=== PATIENT | female | born 1955 | race Caucasian/White ===

== ENCOUNTER 2019-03-16 14:16 | Outpatient (CLI) | payer MEDICARE, OTHER, SELFPAY ==
--- NOTE | 2019-03-16 14:26 | MM_ITS ---
WS: [id number] SCREENING DIGITAL MAMMOGRAM WITH CAD HISTORY: SCREENING COMPARISON: 01/06/2018, 12/26/2016 and 11/15/2014. Bilateral CC and MLO views submitted. Computer aided detection analyzed. Breast composition: There are scattered areas of fibroglandular density. New irregular mass in the up per-outer quadrant of the LEFT breast measures 6 mm. Margins are irregular. May be an area of superim posed fibroglandular tissue. Additional benign calcifications in each breast. LEFT breast: Spot compression views (CC and MLO). True ML. Ultrasound to follow if abnormality yadira gonzáles. MM/[place] [id number] IMPRESSION: BI-RADS: 0-Incomplete: Need additional imaging evaluation FOLLOW UP: Need Additional Imaging
== END 2019-03-16 14:17 | disposition home or self-care (01) ==
LOC: RADSHAW 14:23
PROVIDERS: Family Provider Nurse Practitioner Family; PCP Nurse Practitioner Family; Visit Provider Nurse Practitioner Family
DX: Z12.31 Encounter for screening mammogram for malignant neoplasm of breast (principal)
CPT/HCPCS: 77067

== ENCOUNTER 2019-04-30 11:48 | Outpatient (CLI) | payer MEDICARE, OTHER, SELFPAY ==
--- NOTE | 2019-04-30 11:51 | US_ITS ---
WS: [id number] ADDITIONAL VIEWS LEFT MAMMOGRAM LEFT BREAST ULTRASOUND HISTORY: LT BREAST MASS COMPARISON: 03/16/2019, 01/06/2018 and 12/26/2016 LEFT MAMMOGRAM: Spot compression views and true ML. Asymmetry persists 2:00 axis of the LEFT breast. Asymmetry measures about 5 mm with slightly irregula r borders. LEFT BREAST ULTRASOUND 2-D and color Doppler imaging submitted. 2:00 axis of the LEFT breast at 5 cm from the nipple is an ovoid cyst measuring 5 x 2 x 3 mm. US/US breast LT limited* [id number] IMPRESSION: BI-RADS: 2-Benign FOLLOW UP: 1 Year Follow-up
== END 2019-04-30 11:49 | disposition home or self-care (01) ==
LOC: RADSHAW 11:50
PROVIDERS: Family Provider Nurse Practitioner Family; PCP Nurse Practitioner Family; Visit Provider Nurse Practitioner Family
DX: N60.02 Solitary cyst of left breast (principal); N63.21 Unspecified lump in the left breast, upper outer quadrant
CPT/HCPCS: 76642; 77065

== ENCOUNTER → 2019-06-14 11:32 | Outpatient (BNVA) | payer MEDICARE, OTHER, SELFPAY | PROVIDERS: Family Provider Nurse Practitioner Family; PCP Nurse Practitioner Family; Visit Provider Nurse Practitioner Family | DX: L98.9 Disorder of the skin and subcutaneous tissue, unspecified (principal); E87.8 Other disorders of electrolyte and fluid balance, not elsewhere classified; R63.4 Abnormal weight loss; E66.01 Morbid (severe) obesity due to excess calories | CPT/HCPCS: 80053; 80061 ==

== ENCOUNTER → 2019-07-21 14:50 | Outpatient (BNVA) | payer MEDICARE, OTHER, SELFPAY | PROVIDERS: Family Provider Nurse Practitioner Family; PCP Nurse Practitioner Family; Visit Provider Nurse Practitioner Family | DX: R30.0 Dysuria (principal) | CPT/HCPCS: 81000 ==

== ENCOUNTER 2019-09-03 08:17 | Outpatient (CLI) | payer MEDICARE, OTHER, SELFPAY ==
--- NOTE | 2019-09-03 08:30 | FL_ITS ---
WS: [id number] UPPER GI WITH AIR TECHNICAL: Double contrast upper GI FLUOROSCOPY TIME: 2.7 minutes CLINICAL INFORMATION: K21.9 Gastro-esophageal reflux disease without esophagitis COMPARISON: None. FINDINGS: Swallowing: Normal. No aspiration or penetration Esophagus: Normal caliber and motility. Normal peristalsis. No evidence of high-grade stricture. Smal l esophageal hiatal hernia. Gastroesophageal reflux: Marked reflux worse in the supine position extending to the hypopharynx. Stomach: Double contrast stomach is unremarkable. Normal gastric rugae. Normal emptying. Duodenum: Proximal duodenum and duodenal bulb are normal Other findings: None. FL/FL upper GI w air* [id number] IMPRESSION: 1. Normal esophageal caliber and motility. No stricture. 2. Small esophageal hiatal hernia with extensive reflux worse in the supine po sition. Reflux is visualized to the upper esophagus and hypopharynx. 3. Normal double contrast stomach and proximal duodenum.
== END 2019-09-03 08:18 | disposition home or self-care (01) ==
LOC: RAD 08:18
PROVIDERS: PCP Nurse Practitioner Family; Visit Provider Surgery
DX: K21.9 Gastro-esophageal reflux disease without esophagitis (principal); K44.9 Diaphragmatic hernia without obstruction or gangrene
CPT/HCPCS: 74246

== ENCOUNTER → 2019-10-26 10:28 | Outpatient (BNVA) | payer MEDICARE, OTHER, SELFPAY | PROVIDERS: PCP Nurse Practitioner Family; Visit Provider Nurse Practitioner Family | DX: E78.1 Pure hyperglyceridemia (principal); Z79.899 Other long term (current) drug therapy | CPT/HCPCS: 80053; 80061 ==

== ENCOUNTER → 2019-11-12 09:50 | Outpatient (BNVA) | payer MEDICARE, OTHER, SELFPAY | PROVIDERS: PCP Nurse Practitioner Family; Visit Provider Surgery | DX: Z20.828 Contact with and (suspected) exposure to other viral communicable diseases (principal) | CPT/HCPCS: 87635 ==

== ENCOUNTER 2019-11-17 08:05 | Day surgery (SDC) | payer MEDICARE, OTHER, SELFPAY ==
[2019-11-15 12:21] VITALS: BMI 38.4
[2019-11-17 08:20] VITALS: BP 128/72; PULSE 57; RESP 18; TEMP 36.8; O2SAT 97
[2019-11-17] MEDS: sodium chloride 0.9% 1,000 ML 30 ML IV (08:40)
--- NOTE | 2019-11-17 09:23 | ANES.PREANE2 ---
Pre-Anesthetic Assessment Pre-Anesthetic Assessment: Height/Weight: Height 1.65 m Weight 104.78 kg Temp Pulse Resp BP Pulse Ox 98.2 F 57 L 18 128/72 97 11/17/19 08:20 11/17/19 08:20 11/17/19 08:20 11/17/19 08:20 11/17/19 08:20 Preop Diagnosis: weight loss consult Proposed Procedure: Operation Date: 11/17/19 09:30 Proposed Procedures p EGD 36615 K21.9(Not Applicable) - Sujit Goss MD Was Beta Denia taken within 24 hours: Yes Last intake: Intake Last Liquid Date 11/16/19 Last Liquid Time 19:00 Last Solid Date 11/16/19 Last Solid Time 19:00 Social: Social History: No alcohol and No tobacco Exam: Pre-Anes Outpt Exam: alert, oriented x 3, clear to auscultation bilaterally and regular rate & rhythm Airway: Cervical ROM: WNL MP: 3 Dentition: False and Partials Pulmonary: Pulmonary: Sleep apnea (cpap) CV/HEM: CV/HEM: HTN GI: GI: GERD Metabolic: Metabolic: Morbid obesity Comments: metaboli syndrome Anesthetic Plan: ASA status: 2 Anesthesia: MAC Risk of > 500 ml blood loss (7ml/kg in children): No Meds/Allergies Current Medications: Current Medications Generic Name Dose Route Start Last Admin Trade Name Freq PRN Reason Stop Dose Admin Sodium Chloride 1,000 mls @ 30 ml s/hr 11/17/19 08:15 11/17/19 08:40 Sodium Chloride 0.9% IV 11/18/19 08:14 30 mls/hr .Q24H NABIL Administration PFSH Anesthesia PFSH: Medical History Enrolled in chronic care management Fibromyalgia HTN (hypertension) Hypertriglyceridemia Morbid obesity with BMI of 40.0-44.9, adult Obstructive sleep apnea on CPAP Osteoarthritis (arthritis due to wear and tear of joints) Osteoarthritis of knees, bilateral Surgical History History of colonoscopy History of foot surgery Hx of hysterectomy Family History Mother Cancer lung cancer Hypertension Diabetes Denies family history of Anesthesia complication Bleeding disorder Social History Smoking and tobacco status: former smoker Alcohol intake: current Alcohol intake frequency: 0-2 Drinks per Day Desire information about alcohol rehabilitation?: No Household members: spouse Marital status: Current occupational status: retired Current gender identity: Female Data Anesthesia Cardiac Studies: No Data to Display
--- NOTE | 2019-11-17 09:50 | W.PM.OPSUD ---
Surgery/Procedure H&P Update DATE OF PROCEDURE: November 17, 2019 DATE H&P PERFORMED: 11/11/19 H&P UPDATE INFORMATION: I have reviewed H&P completed within last 30 days, I have examined patient prior to procedure and No changes to prior documentation PREOP DIAGNOSIS: Chronic acid reflux PRIMARY INDICATION FOR PROCEDURE: The same PLANNED PROCEDURE: Operation Date: 11/17/19 09:30 Proposed Procedures p EGD 13623 K21.9(Not Applicable) - Sujit Goss MD
[2019-11-17 10:12] VITALS: BP 133/91; PULSE 54; RESP 16; TEMP 36.3; O2SAT 98
--- NOTE | 2019-11-17 10:20 | ANE.PACU2 ---
Inpatient post-anesthesia follow up: Airway intact: Yes Vital signs: Temperature 97.4 F Pulse Rate 54 Respiratory Rate 16 Blood Pressure 133/91 Pulse Oximetry 98 Oxygen Delivery Me thod Room Air Oxygen Flow Rate Fraction of Inspir ed Oxygen Hydration adequate: Yes Nausea and vomiting: No Mental status: Baseline
[2019-11-18 06:11] LABS: H. Pylori / CLO Test Negative
== END 2019-11-17 10:47 | disposition home or self-care (01) ==
PROVIDERS: PCP Nurse Practitioner Family; Visit Provider Surgery
PROC: 0DJ08ZZ Inspection of Upper Intestinal Tract, Via Natural or Artificial Opening Endoscopic (ICD-10-PCS; CPT 43235; principal; 2019-11-17 09:30)
DX: K21.9 Gastro-esophageal reflux disease without esophagitis (principal); K29.70 Gastritis, unspecified, without bleeding; M79.7 Fibromyalgia; I10 Essential (primary) hypertension; E78.00 Pure hypercholesterolemia, unspecified; E66.01 Morbid (severe) obesity due to excess calories; Z68.38 Body mass index [BMI] 38.0-38.9, adult; G47.33 Obstructive sleep apnea (adult) (pediatric); M17.0 Bilateral primary osteoarthritis of knee
CPT/HCPCS: 12345; 43239; 87077; J2704; J7030

== ENCOUNTER 2020-02-14 14:40 | Outpatient (CLI) | payer MEDICARE, OTHER, SELFPAY ==
--- NOTE | 2020-02-14 14:49 | MR_ITS ---
WS: [id number] MRI LEFT SHOULDER NONCONTRAST TECHNIQUE: Sagittal T2, coronal T1, T2 and proton density imaging. Axial gradient PDE imaging. CLINICAL INFORMATION: LEFT SHOULDER PAIN COMPARISON: None. FINDINGS: Moderate degenerative arthritis at the AC joint with mild edema. Mild downsloping of the acromion wit h subacromial spurring. Mild chronic thinning with involving the distal supraspinatus. Tiny intrasubs tance tear involving the distal supraspinatus. No full-thickness rotator cuff tears. Normal infraspin atus. Normal teres minor. Small subcoracoid effusion. Chronic appearing tear involving the distal subscapularis insertion. Mild medial subluxation of the b iceps tendon proximally. Otherwise normal biceps tendon in the bicipital groove. Chronic thinning of the intra-articular biceps tendon. Degenerative fraying of the glenoid labrum. Moderate degenerative arthritis glenohumeral joint. Mandie l biceps labral anchor. Subchondral cystic change involving the glenohumeral joint. MR/MR shoulder LT wo con* [id number] IMPRESSION: 1. Moderate degenerative arthritis AC joint with mild downsloping of the acrom ion. Mild edema at the AC joint. 2. Small intrasubstance tear involving the distal supraspinatus with mild tend inopathy. Chronic thinning of the distal supraspinatus. 3. Chronic appearing atrophy with thinning and chronic tear of the distal subs capularis. Slight medial subluxation of the proximal biceps tendon. 4. Otherwise normal biceps tendon in the bicipital groove. 5. Degenerative fraying glenoid labrum. 6. Moderate degenerative arthritis AC joint with subchondral cystic change. 7. Normal biceps labral anchor.
== END 2020-02-14 14:41 | disposition home or self-care (01) ==
LOC: RADWPI 14:44
PROVIDERS: PCP Nurse Practitioner Family; Visit Provider Nurse Practitioner Family
DX: M25.512 Pain in left shoulder (principal); G89.29 Other chronic pain; M19.012 Primary osteoarthritis, left shoulder; M25.412 Effusion, left shoulder; M75.102 Unspecified rotator cuff tear or rupture of left shoulder, not specified as traumatic; M62.512 Muscle wasting and atrophy, not elsewhere classified, left shoulder; S43.432A Superior glenoid labrum lesion of left shoulder, initial encounter; X58.XXXA Exposure to other specified factors, initial encounter
CPT/HCPCS: 73221

== ENCOUNTER 2020-05-05 10:56 | Outpatient (CLI) | payer MEDICARE, OTHER, SELFPAY ==
--- NOTE | 2020-05-05 11:04 | MM_ITS ---
WS: [id number] BILATERAL DIGITAL SCREENING MAMMOGRAPHY WITH CAD CLINICAL INFORMATION: SCREENING HISTORY: Screening mammogram. No current complaints. COMPARISON: April 30, 2019 TECHNIQUE: Bilateral CC and MLO views. FINDINGS: Scattered fibroglandular densities bilaterally. Ovoid 6 mm asymmetric density upper outer right breas t best seen on the MLO view. This is new from previous. Recommend spot compression views and ultrasou nd for further evaluation. Left breast is unremarkable and unchanged. Punctate and lucent centered calcifications. MM/[place] [id number] IMPRESSION: BI-RADS: 0-Incomplete: Need additional imaging evaluation FOLLOW UP: Need Additional Imaging RECOMMEND RIGHT BREAST DIAGNOSTIC MAMMOGRAPHY AND ULTRASOUND FOR FURTHER EVALUA TION.
== END 2020-05-05 10:57 | disposition home or self-care (01) ==
LOC: RADSHAW 11:03
PROVIDERS: PCP Nurse Practitioner Family; Visit Provider Nurse Practitioner Family
DX: Z12.31 Encounter for screening mammogram for malignant neoplasm of breast (principal); N64.89 Other specified disorders of breast
CPT/HCPCS: 77067

== ENCOUNTER 2020-06-02 08:49 | Outpatient (CLI) | payer MEDICARE, OTHER, SELFPAY ==
--- NOTE | 2020-06-02 08:55 | US_ITS ---
WS: [id number] Right breast ultrasound, 06/02/2020 Clinical Data: RT BREAST ASYMMETRY Comparison: Mammogram, right breast spot, 06/02/2020 Findings: At the 9:00 position 3 cm from the nipple there is a cyst which measures 0.33 x 0.40 x 0.50 cm. Howev er this cyst is not in the location noted on the mammogram. In the 11:00 and 10:00 position of the ri ght breast 3 cm from the nipple there is only normal breast tissue. US/US breast RT limited* [id number] Impression: 1. Normal breast tissue in upper-outer quadrant of the right breast. 2. Incidental cyst at the 9:00 position 3 cm from the nipple the right breast. 3. Return to annual screening mammograms. BIRADS: 2-Benign FOLLOW UP: See Report
--- NOTE | 2020-06-02 08:55 | MM_ITS ---
WS: [id number] Right breast diagnostic digital mammogram, 06/02/2020 Clinical Data: R92.8 - Other abnormal and inconclusive findings on diagnostic imaging of breast Comparison: 05/05/2020, 03/16/2019, 01/06/2018, 12/26/2016, 11/15/2014, 08/26/2013, 07/03/2012, 03/06/2011, 02/05/2010, 01/27/2009, 01/16/2008, 07/31/2006. Findings: The additional imaging of the right breast in the compression CC, compression MLO and the ML views re veal no abnormal masses in the upper outer quadrant. The tissue appears to be normal with no cysts or masses. There are no secondary signs of carcinoma. MM/[place] [id number] Impression: 1. Probable asymmetric tissue in the upper outer quadrant of the right breast. 2. Return to annual screening mammograms. BIRADS: 2-Benign FOLLOW UP: 1 Year Follow-up The CAD controlled area checker was used.
== END 2020-06-02 08:50 | disposition home or self-care (01) ==
PROVIDERS: PCP Nurse Practitioner Family; Visit Provider Nurse Practitioner Family
DX: R92.8 Other abnormal and inconclusive findings on diagnostic imaging of breast (principal)
CPT/HCPCS: 76642; 77065

== ENCOUNTER → 2020-09-04 10:33 | Outpatient (BNVA) | payer MEDICARE, OTHER, SELFPAY | PROVIDERS: PCP Nurse Practitioner Family; Visit Provider Nurse Practitioner Family | DX: J06.9 Acute upper respiratory infection, unspecified (principal); Z20.822 Contact with and (suspected) exposure to COVID-19 | CPT/HCPCS: 87635 ==

== ENCOUNTER 2020-09-09 07:18 | Outpatient (CLI) | payer MEDICARE, OTHER, SELFPAY ==
[2020-09-09 07:32] VITALS: BP 136/82; PULSE 67; RESP 16; TEMP 36.6; O2SAT 95
--- NOTE | 2020-09-09 07:51 | A.OFFVIS_ITS ---
Patient Information COVID 19 common symptoms: positive fever(s), chills and cough [facility] COVID test results: Nasal/Oral Coronavirus 2019 PCR Detected H 09/04/20 10:33 09/04/20 outside results available, scanned Criteria/Plan Inclusion/Exclusion Criteria weight >/= 40kg, + direct test </= 10 days ago and symptom onset </= 10 days ago age >/= 65 not requiring hospitalization, not requiring oxygen (if not chronically on oxygen) and no increase oxygen requirement (if chronically on oxygen) Patient education patient/family/caregiver received/reviewed fact sheet, Emergency Use Authorization/unapproved drug status discussed with patient/family/caregiver, alternatives to this treatment discussed with patient/family/caregiver, risks and benefits of medication reviewed with patient/family/caregiver, pat ient/family/caregiver given opportunity for questions, which were answered and patient consents to receiving Monoclonal Antibody Treatment Plan for treatment Meets criteria for Monoclonal Antibody infusion Ordering Monoclonal Antibody infusion for today
[2020-09-09 09:27] VITALS: BP 153/96; PULSE 59; RESP 17; TEMP 36.8; O2SAT 98
[2020-09-09 10:26] VITALS: BP 157/87; PULSE 60; RESP 18; TEMP 37.1; O2SAT 97
== END 2020-09-09 07:19 | disposition home or self-care (01) ==
PROVIDERS: PCP Nurse Practitioner Family; Visit Provider Nurse Practitioner Family
DX: U07.1 COVID-19 (principal)
CPT/HCPCS: 96365

== ENCOUNTER 2020-10-19 14:38 | Outpatient (CLI) | payer MEDICARE, OTHER, SELFPAY ==
--- NOTE | 2020-10-19 15:15 | XR_ITS ---
WS: [id number] CERVICAL SPINE TECHNIQUE: 3 views of the cervical spine CLINICAL INFORMATION: M54.2 - Cervicalgia COMPARISON: None. FINDINGS: Straightening of the normal cervical lordosis. Moderate spondylitic changes. Disc space narrowing wor se at C5-C6 and C6-C7. Anterior hypertrophic changes. Normal prevertebral soft tissues. Normal C1-C2 articulation. Moderate facet arthropathy in the mid and lower cervical spine. XR/XR cervical spine 3V* [id number] IMPRESSION: 1. Straightening of the normal cervical lordosis with moderate spondylitic yoandy nges. 2. Disc space narrowing worse at C4-C6.
--- NOTE | 2020-10-19 15:45 | CT_ITS ---
WS: [id number] CT HEAD TECHNIQUE: Noncontrast CT of the head obtained from the skullbase to the vertex. CLINICAL INFORMATION: G43.709 - Chronic migraine without aura, not intractable,... COMPARISON: None. DLP: 925.[address] scans at [facility] use at least one of these dose optimization techniques: automated e xposure control; mA and/or kV adjustment per patient size (includes targeted exams where dose is matc hed to clinical indication); or iterative reconstruction. FINDINGS: No evidence of intracranial hemorrhage or mass effect. Ventricular system and basal cisterns are garland nt. Moderate small vessel changes with mild parenchymal volume loss. Chronic lacunar infarcts in the basal ganglia. Benign basal ganglia calcifications. Intracranial vascular calcification. No extra-axi al fluid collections. No evidence of mass or mass effect. Normal kohli-white differentiation. Paranasal sinuses and mastoid air cells are well aerated. .Normal visualized soft tissues. CT/CT head wo con* [id number] IMPRESSION: 1. No evidence of intracranial hemorrhage or mass effect. 2. Moderate small vessel changes. Mild parenchymal volume loss. 3. Chronic lacunar infarcts in the basal ganglia bilaterally. 4. No acute intracranial findings.
== END 2020-10-19 14:39 | disposition home or self-care (01) ==
PROVIDERS: PCP Nurse Practitioner Family; Visit Provider Nurse Practitioner Family
DX: G43.709 Chronic migraine without aura, not intractable, without status migrainosus (principal); M54.2 Cervicalgia; I63.81 Other cerebral infarction due to occlusion or stenosis of small artery
CPT/HCPCS: 70450; 72040

== ENCOUNTER → 2021-01-24 11:18 | Outpatient (BNVA) | payer MEDICARE, OTHER, SELFPAY | PROVIDERS: PCP Nurse Practitioner Family; Visit Provider Specialist | DX: G43.711 Chronic migraine without aura, intractable, with status migrainosus; G31.84 Mild cognitive impairment of uncertain or unknown etiology; G92.9 Unspecified toxic encephalopathy; F32.A Depression, unspecified; Z87.891 Personal history of nicotine dependence | CPT/HCPCS: 96116; 99205 ==

== ENCOUNTER 2021-04-18 10:47 | Outpatient (CLI) | payer MEDICARE, OTHER, SELFPAY ==
--- NOTE | 2021-04-18 11:02 | MR_ITS ---
WS: [id number] MRI BRAIN WITHOUT CONTRAST HISTORY: G43.709 - Chronic migraine without aura, not intractable,... COMPARISON: CT head 10/19/2020 TECHNIQUE: Diffusion imaging, multiplanar T1, T2 and FLAIR imaging obtained. No evidence for acute infarct or hemorrhage. Orozco-white matter differentiation is normal. Benign bila teral basal ganglia calcifications. Moderate amount of T2 and FLAIR signal hyperintensities throughou t the white matter beginning at the vertex and extending around the lateral ventricles. Slightly more confluent on the LEFT. There are both patchy and focal areas of increased T2 and FLAIR signal. Cereb ellum and visualized brainstem is negative. No remote or acute infarcts are volume loss. Ventricles and extra-axial spaces are normal. No inferior displacement of cerebellar tonsils. The sella turcica and pituitary gland are unremarkabl e. Dural venous sinuses and [place] demonstrate no abnormality on this unenhanced studies. Paranasal sinuses: Clear. Mastoid air cells: Normal. Calvarium and scalp: Intact. MR/MR head wo con* [id number] IMPRESSION: 1. No acute infarct. 2. Moderate bilateral T2 and FLAIR signal hyperintensities. Slightly more than expected for this age. Probably related to small vessel ischemic disease. Goldy tional differentials to consider are diabetes, hypertension, smoking and migrai phong. 3. No prior large territory infarct.
--- NOTE | 2021-04-18 11:02 | MR_ITS ---
WS: [id number] MRA ANGIOGRAPHY [place] HISTORY: G43.709 - Chronic migraine without aura, not intractable,... COMPARISON: None available. TECHNIQUE: 3-D MR angiography is performed of the [place]. All images are reviewed including source images. Distal vertebral and basilar arteries are intact with no significant stenosis or plaque. Posterior ce rebral arteries are normal course and caliber. Small caliber posterior communicating arteries are poo rly visualized. Intracranial portion of the internal carotid arteries are normal course and caliber. No significant a therosclerosis, stenosis or aneurysm identified. Middle and anterior cerebral arteries are both paten t with no significant disease. Anterior communicating artery is also normal. MR/MR angio head wo con [id number] IMPRESSION: No significant stenosis, atherosclerotic disease or occlusion within the [place].
--- NOTE | 2021-04-18 11:02 | MR_ITS ---
WS: [id number] MRI CERVICAL SPINE NONCONTRAST HISTORY: Migraines and memory problems. Cervical degeneration. COMPARISON: None available. Technique: Multiplanar, multisequence noncontrast imaging of the cervical spine. Study is compromised by motion. Mild straightening of the normal cervical lordosis with slight retrolisthesis of C5. Signal within the cervical cord is normal. Visualized posterior fossa is unremarkable. Marked degener ation of the disks throughout the cervical spine but most significant at C4-5, C5-6 and C6-7. Large e ndplate osteophytes and disc protrusions. Craniocervical junction, C1 and C2 relationship, odontoid process and soft tissues are normal. C2-C3: Normal. C3-C4: Mild osteophytic ridging. No high-grade stenosis. Mild facet arthritis. C4-C5: Moderate osteophytic ridging and annular disc bulging. Disc and osteophyte disease encroach up on the ventral thecal sac causing at least moderate central and bilateral foraminal stenosis. Mild fa cet arthritis. C5-C6: Mild osteophytic ridging and disc protrusions. There is a small RIGHT paracentral disc protrus ion. Additional osteophytes contributing to moderate central and bilateral foraminal stenosis. C6-C7: Mild annular disc bulging with osteophytic ridging. Disc and osteophyte encroaching upon the t hecal sac and foramen causing mild central and foraminal stenosis. C7-T1: Normal. Paraspinal soft tissue are normal. MR/MR cervical spin wo con* [id number] IMPRESSION: 1. Moderate to severe degenerative disc disease throughout the cervical spine with osteophytosis. Most significant from C4-5 to C6-7. 2. Moderate central and bilateral foraminal stenosis at C4-5 and C5-6 due to c ombination of disc and osteophyte disease. Most significant stenosis and cord c ontact at C4-5. 3. Mild central and foraminal stenosis at C6-7 due to disc and osteophyte dise ase.
== END 2021-04-18 10:48 | disposition home or self-care (01) ==
LOC: RAD 10:56
PROVIDERS: PCP Nurse Practitioner Family; Visit Provider Specialist
DX: G43.709 Chronic migraine without aura, not intractable, without status migrainosus (principal); M48.02 Spinal stenosis, cervical region; M25.78 Osteophyte, vertebrae
CPT/HCPCS: 70544; 70551; 72141

== ENCOUNTER → 2021-04-25 10:23 | Outpatient (BNVA) | payer MEDICARE, OTHER, SELFPAY | PROVIDERS: PCP Nurse Practitioner Family; Visit Provider Specialist | DX: G43.709 Chronic migraine without aura, not intractable, without status migrainosus (principal); G37.9 Demyelinating disease of central nervous system, unspecified; G92.9 Unspecified toxic encephalopathy; G31.84 Mild cognitive impairment of uncertain or unknown etiology; Z87.891 Personal history of nicotine dependence | CPT/HCPCS: 99214; 99215 ==

== ENCOUNTER → 2021-08-08 11:27 | Outpatient (BNVA) | payer MEDICARE, OTHER, SELFPAY | PROVIDERS: PCP Nurse Practitioner Family; Visit Provider Specialist | DX: G43.711 Chronic migraine without aura, intractable, with status migrainosus (principal); G37.9 Demyelinating disease of central nervous system, unspecified; G31.84 Mild cognitive impairment of uncertain or unknown etiology | CPT/HCPCS: 99214 ==

== ENCOUNTER → 2021-09-20 09:57 | Outpatient (BNVA) | payer MEDICARE, OTHER, SELFPAY | PROVIDERS: PCP Nurse Practitioner Family; Visit Provider Nurse Practitioner Family | DX: E66.9 Obesity, unspecified (principal); I10 Essential (primary) hypertension | CPT/HCPCS: 80053; 80061 ==

== ENCOUNTER → 2021-11-07 09:48 | Outpatient (BNVA) | payer MEDICARE, OTHER, SELFPAY | PROVIDERS: PCP Nurse Practitioner Family; Visit Provider Specialist | DX: G31.84 Mild cognitive impairment of uncertain or unknown etiology (principal); G43.711 Chronic migraine without aura, intractable, with status migrainosus; G37.9 Demyelinating disease of central nervous system, unspecified | CPT/HCPCS: 96116; 99213; 99214 ==

== ENCOUNTER → 2021-12-19 09:54 | Outpatient (BNVA) | payer MEDICARE, OTHER, SELFPAY | PROVIDERS: PCP Nurse Practitioner Family; Referring Provider Specialist; Visit Provider Specialist | DX: G56.03 Carpal tunnel syndrome, bilateral upper limbs (principal) | CPT/HCPCS: 95910; 95912 ==

== ENCOUNTER → 2022-01-16 09:30 | Outpatient (BNVA) | payer MEDICARE, OTHER, SELFPAY | PROVIDERS: PCP Nurse Practitioner Family; Referring Provider Specialist; Visit Provider Specialist | DX: G56.03 Carpal tunnel syndrome, bilateral upper limbs (principal) | CPT/HCPCS: 73110 ==

== ENCOUNTER 2022-01-16 11:34 | Outpatient (CLI) | payer MEDICARE, OTHER, SELFPAY | END 2022-01-16 11:35 | disposition home or self-care (01) | LOC: SPT 11:34 | PROVIDERS: PCP Nurse Practitioner Family; Visit Provider Specialist | DX: Z46.89 Encounter for fitting and adjustment of other specified devices (principal); G56.03 Carpal tunnel syndrome, bilateral upper limbs | CPT/HCPCS: 97760; 99204; 99205; L3908 ==

== ENCOUNTER → 2022-03-14 13:26 | Outpatient (BNVA) | payer MEDICARE, OTHER, SELFPAY | PROVIDERS: PCP Nurse Practitioner Family; Visit Provider Nurse Practitioner Family | DX: Z79.899 Other long term (current) drug therapy (principal); M19.012 Primary osteoarthritis, left shoulder | CPT/HCPCS: 80053 ==

== ENCOUNTER → 2022-03-21 11:28 | Outpatient (BNVA) | payer MEDICARE, OTHER, SELFPAY | PROVIDERS: PCP Nurse Practitioner Family; Visit Provider Nurse Practitioner Family | DX: Z79.899 Other long term (current) drug therapy (principal); L98.9 Disorder of the skin and subcutaneous tissue, unspecified; R73.09 Other abnormal glucose; R94.4 Abnormal results of kidney function studies | CPT/HCPCS: 83036 ==

== ENCOUNTER → 2022-05-07 11:13 | Outpatient (BNVA) | payer MEDICARE, OTHER, SELFPAY | PROVIDERS: PCP Nurse Practitioner Family; Visit Provider Nurse Practitioner Family | DX: M19.90 Unspecified osteoarthritis, unspecified site (principal); I10 Essential (primary) hypertension | CPT/HCPCS: 80053 ==

== ENCOUNTER → 2022-05-14 11:10 | Outpatient (BNVA) | payer MEDICARE, OTHER, SELFPAY | PROVIDERS: PCP Nurse Practitioner Family; Visit Provider Specialist | DX: G31.84 Mild cognitive impairment of uncertain or unknown etiology (principal); G43.711 Chronic migraine without aura, intractable, with status migrainosus; G56.03 Carpal tunnel syndrome, bilateral upper limbs; G37.9 Demyelinating disease of central nervous system, unspecified; I10 Essential (primary) hypertension; M19.90 Unspecified osteoarthritis, unspecified site; E66.01 Morbid (severe) obesity due to excess calories; Z68.41 Body mass index [BMI] 40.0-44.9, adult; R94.4 Abnormal results of kidney function studies | CPT/HCPCS: 99214 ==

== ENCOUNTER → 2022-06-05 10:57 | Outpatient (BNVA) | payer MEDICARE, OTHER, SELFPAY | PROVIDERS: PCP Nurse Practitioner Family; Visit Provider Internal Medicine Nephrology | DX: N18.30 Chronic kidney disease, stage 3 unspecified (principal); I10 Essential (primary) hypertension; Z79.899 Other long term (current) drug therapy | CPT/HCPCS: 80069; 82310; 82570; 83970; 84156; 85025 ==

== ENCOUNTER → 2022-07-29 11:34 | Outpatient (BNVA) | payer MEDICARE, OTHER, SELFPAY | PROVIDERS: PCP Nurse Practitioner Family; Visit Provider Nurse Practitioner Family | DX: G37.9 Demyelinating disease of central nervous system, unspecified (principal); M17.0 Bilateral primary osteoarthritis of knee; R29.898 Other symptoms and signs involving the musculoskeletal system; E11.9 Type 2 diabetes mellitus without complications; E66.01 Morbid (severe) obesity due to excess calories; Z68.41 Body mass index [BMI] 40.0-44.9, adult | CPT/HCPCS: 83036 ==

== ENCOUNTER → 2022-09-03 14:07 | Outpatient (BNVA) | payer MEDICARE, OTHER, SELFPAY | PROVIDERS: PCP Nurse Practitioner Family; Visit Provider Nurse Practitioner Family | DX: L57.0 Actinic keratosis (principal); C44.712 Basal cell carcinoma of skin of right lower limb, including hip; L57.8 Other skin changes due to chronic exposure to nonionizing radiation; L81.4 Other melanin hyperpigmentation; D22.5 Melanocytic nevi of trunk; L82.1 Other seborrheic keratosis; L91.8 Other hypertrophic disorders of the skin; Z85.828 Personal history of other malignant neoplasm of skin | CPT/HCPCS: 11102; 17000; 17003; 99213 ==

== ENCOUNTER → 2022-10-07 08:50 | Outpatient (BNVA) | payer MEDICARE, OTHER, SELFPAY | PROVIDERS: PCP Nurse Practitioner Family; Visit Provider Dermatology | DX: C44.712 Basal cell carcinoma of skin of right lower limb, including hip (principal) | CPT/HCPCS: 13121; 17313 ==

== ENCOUNTER → 2022-11-13 13:20 | Outpatient (BNVA) | payer MEDICARE, OTHER, SELFPAY | PROVIDERS: PCP Nurse Practitioner Family; Visit Provider Nurse Practitioner Family | DX: E78.1 Pure hyperglyceridemia (principal); I10 Essential (primary) hypertension; M19.90 Unspecified osteoarthritis, unspecified site | CPT/HCPCS: 80053; 80061 ==

== ENCOUNTER 2023-02-14 10:03 | Outpatient (CLI) | payer MEDICARE, OTHER, SELFPAY ==
--- NOTE | 2023-02-14 10:30 | CTR_ITS ---
PROCEDURE INFORMATION: Exam: CT Abdomen And Pelvis With Contrast Exam date and time: 02/14/2023 11:15 AM Age: 67 years old Clinical indication: Abdominal pain; Localized; Lower; Prior surgery; Surgery date: 6+ months; Surgery type: Hyster; Additional info: R10.9 - unspecified abdominal pain TECHNIQUE: Imaging protocol: Computed tomography of the abdomen and pelvis with contrast. Radiation optimization: All CT scans at this facility use at least one of these dose optimization techniques: automated exposure control; mA and/or kV adjustment per patient size (includes targeted exams where dose is matched to clinical indication); or iterative reconstruction. Contrast material: OMNI 350; Contrast volume: 95 ml; Contrast route: INTRAVENOUS (IV); REPORTING DATA: Count of CT and Cardiac NM exams in prior 12 months: This patient has received 0 known CTs and 0 known cardiac nuclear medicine studies in the 12 months prior to the current study. COMPARISON: XA FL upper GI w air* [id number] 09/03/2019 8:44 AM RADIATION DOSE METRICS: Total DLP (mGy-cm): 845.56 FINDINGS: Lungs: Lung bases are clear. Liver: The liver is normal. Gallbladder and bile ducts: The gallbladder is nondistended. There is sludge in the lumen. There is subtle gallbladder mucosal hyperemia without pericholecystic edema. There is no intrahepatic or extrahepatic bile duct dilation. Acute cholecystitis is not suspected. Pancreas: The pancreas is unremarkable. Spleen: The spleen is unremarkable. Adrenal glands: There is hypertrophy of the left adrenal gland. The right adrenal gland is normal. Kidneys and ureters: There is mild atrophy of both kidneys. Kidneys are slightly under rotated bilaterally. Renal parenchymal enhancement pattern is normal. There is no hydronephrosis or stones. Stomach and bowel: The stomach is unremarkable. The small bowel is nondilated. There is moderate sigmoid colonic diverticulosis without evidence of diverticulitis. Appendix: The appendix is normal. Intraperitoneal space: There is no free air or significant intraperitoneal free fluid. Vasculature: There is moderate aortic atherosclerotic disease. The portal, splenic and superior mesenteric veins are patent. Lymph nodes: There is no lymphadenopathy in the retroperitoneum, mesentery, pelvis or inguinal regions. Urinary bladder: The urinary bladder is decompressed, preventing meaningful evaluation of wall thickness. Reproductive: The uterus is absent. There is no adnexal mass or large cyst. Bones/joints: There is moderate degenerative disease in the lumbar spine. The pelvis and hips are unremarkable. Soft tissues: The abdominal wall is intact. CT/CT abdomen pelvis w con* [id number] IMPRESSION: 1. No acute findings. 2. Incidental findings above.
--- NOTE | 2023-02-14 11:01 | XRR_ITS ---
PROCEDURE INFORMATION: Exam: XR Chest Exam date and time: 02/14/2023 11:24 AM Age: 67 years old Clinical indication: Cough; Additional info: R05.9 - cough, unspecified TECHNIQUE: Imaging protocol: Radiologic exam of the chest. Views: 2 views. COMPARISON: CT abdomen pelvis w con* [id number] 02/14/2023 11:15 AM FINDINGS: Lungs: There is no consolidation. Pleural spaces: There is no pleural effusion or pneumothorax. Heart/Mediastinum: Cardiomediastinal contours are unremarkable. Bones/joints: Bones are unremarkable. XR/XR chest 2V* [id number] IMPRESSION: No acute findings.
[2023-02-14 11:12] LABS: Blood Urea Nitrogen 23 mg/dL (8-23)
[2023-02-14 11:13] LABS: Glomerular Filtration Rate 44.5 mL/min (90-130)
[2023-02-14] MEDS: iohexol 350 mg/mL 500 mL Btl (per mL) IV (11:24)
[2023-02-14] MEDS: iohexol 350 mg/mL 500 mL Btl (per mL) PO (11:25)
== END 2023-02-14 10:04 | disposition home or self-care (01) ==
LOC: RAD 10:04
PROVIDERS: PCP Nurse Practitioner Family; Visit Provider Nurse Practitioner Family
DX: R10.9 Unspecified abdominal pain (principal); R05.9 Cough, unspecified
CPT/HCPCS: 71046; 74177; 82565; 84520; Q9967

== ENCOUNTER → 2023-02-24 11:15 | Outpatient (BNVA) | payer MEDICARE, OTHER, SELFPAY | PROVIDERS: PCP Nurse Practitioner Family; Visit Provider Nurse Practitioner Family | DX: I10 Essential (primary) hypertension (principal); E66.9 Obesity, unspecified; R10.84 Generalized abdominal pain | CPT/HCPCS: 80053; 80061 ==

== ENCOUNTER → 2023-05-12 11:05 | Outpatient (BNVA) | payer MEDICARE, OTHER, SELFPAY | PROVIDERS: PCP Nurse Practitioner Family; Visit Provider Nurse Practitioner Family | DX: D22.9 Melanocytic nevi, unspecified (principal) | CPT/HCPCS: 88304; 88305 ==

== ENCOUNTER → 2023-05-13 09:58 | Outpatient (BNVA) | payer MEDICARE, OTHER, SELFPAY | PROVIDERS: PCP Nurse Practitioner Family; Visit Provider Specialist | DX: G30.9 Alzheimer's disease, unspecified (principal); F02.80 Dementia in other diseases classified elsewhere, unspecified severity, without behavioral disturbance, psychotic disturbance, mood disturbance, and anxiety; G37.9 Demyelinating disease of central nervous system, unspecified; G43.711 Chronic migraine without aura, intractable, with status migrainosus | CPT/HCPCS: 96116; 99214 ==

== ENCOUNTER 2023-06-18 16:14 | Outpatient (CLI) | payer MEDICARE, OTHER, SELFPAY ==
[2023-06-18 17:28] LABS: Basophils # 0.1 10^3/uL (0.0-0.1); Basophils % 0.7 %; Eosinophils # 0.3 10^3/uL (0.0-0.8); Eosinophils % 3.4 %; Lymphocytes # 2.4 10^3/uL (0.8-4.8); Lymphocytes % 28.5 %; Mean Corpuscular HGB Conc 32.3 g/dL (30-55); Mean Corpuscular Hemoglobin 31.3 pg (27-33); Mean Corpuscular Volume 96.8 fl (85-98); Mean Platelet Volume 10.6 fL (7.4-10.4); Monocytes # 0.8 10^3/uL (0.2-0.9); Monocytes % 9.7 %; Neutrophils # 4.73 10^3/uL (1.8-7.7); Neutrophils % 57.5 %; Nucleated Red Blood Cells % 0 %; Platelet Count 201 10^3/cmm (157-399); Red Blood Count 4.03 10^6/uL (3.85-5.65); Red Cell Distribution Width 13.4 % (12.1-15.1); White Blood Count 8.24 10^3/uL (3.29-11.43)
[2023-06-18 17:44] LABS: Albumin Level 4.2 g/dL (3.5-5.2); Blood Urea Nitrogen 24 mg/dL (8-23); Calcium 10.2 mg/dL (8.5-10.5); Carbon Dioxide 26 mmol/L (22-29); Chloride 101 mmol/L (98-107); Glomerular Filtration Rate 31.9 mL/min (90-130); Glucose 99 mg/dL (65-115); Phosphorus 2.8 mg/dL (2.5-4.5); Sodium 138 mmol/L (136-145)
[2023-06-18 17:55] LABS: Creatinine Urine, Random 288 mg/dL (28-217); Microalbum Creatinine Ratio Ur 3 mg/dL (0-20); Microalbumin Random Urine 1 ug/dL (0-20)
[2023-06-18 18:28] LABS: Calcium 9.4 mg/dL (8.5-10.5)
[2023-06-19 11:05] LABS: 25 Hydroxy Vitamin D 69 ng/mL (30-100)
== END 2023-06-18 16:15 | disposition home or self-care (01) ==
LOC: LAB 16:23
PROVIDERS: PCP Nurse Practitioner Family; Visit Provider Internal Medicine Nephrology
DX: D48.5 Neoplasm of uncertain behavior of skin (principal); L82.1 Other seborrheic keratosis; L81.4 Other melanin hyperpigmentation; W89.1XXA Exposure to tanning bed, initial encounter; Z85.828 Personal history of other malignant neoplasm of skin; E55.9 Vitamin D deficiency, unspecified
CPT/HCPCS: 11102; 36415; 80069; 82044; 82306; 82310; 83970; 85025; 99213

== ENCOUNTER → 2023-07-21 08:25 | Outpatient (BNVA) | payer MEDICARE, OTHER, SELFPAY | PROVIDERS: PCP Nurse Practitioner Family; Visit Provider Dermatology | DX: C44.319 Basal cell carcinoma of skin of other parts of face (principal) | CPT/HCPCS: 13132; 17311 ==

== ENCOUNTER → 2023-07-28 10:58 | Outpatient (BNVA) | payer MEDICARE, OTHER, SELFPAY | PROVIDERS: PCP Nurse Practitioner Family; Visit Provider Dermatology | DX: Z48.02 Encounter for removal of sutures (principal) | CPT/HCPCS: 99212 ==

== ENCOUNTER 2023-09-08 13:09 | Outpatient (CLI) | payer MEDICARE, OTHER, SELFPAY ==
[2023-09-08 13:41] LABS: Basophils # 0.1 10^3/uL (0.0-0.1); Basophils % 1.1 %; Eosinophils # 0.3 10^3/uL (0.0-0.8); Eosinophils % 4.2 %; Hematocrit 41.5 % (36-47); Lymphocytes # 2.5 10^3/uL (0.8-4.8); Lymphocytes % 31.9 %; Mean Corpuscular HGB Conc 32.8 g/dL (30-55); Mean Corpuscular Hemoglobin 31.1 pg (27-33); Mean Platelet Volume 10.7 fL (7.4-10.4); Monocytes # 0.8 10^3/uL (0.2-0.9); Monocytes % 9.6 %; Neutrophils # 4.21 10^3/uL (1.8-7.7); Neutrophils % 52.9 %; Nucleated Red Blood Cells % 0 %; Platelet Count 230 10^3/cmm (157-399); Red Blood Count 4.37 10^6/uL (3.85-5.65); Red Cell Distribution Width 13.2 % (12.1-15.1); White Blood Count 7.94 10^3/uL (3.29-11.43)
[2023-09-08 14:00] LABS: Albumin Level 4.5 g/dL (3.5-5.2); Blood Urea Nitrogen 17 mg/dL (8-23); Carbon Dioxide 26 mmol/L (22-29); Chloride 98 mmol/L (98-107); Glomerular Filtration Rate 44.4 mL/min (90-130); Glucose 102 mg/dL (65-115); Phosphorus 2.8 mg/dL (2.5-4.5); Sodium 136 mmol/L (136-145)
[2023-09-08 14:00] LABS: Urine Creatinine 64 mg/dL (28-217); Urine Protein Random 6 mg/dL
[2023-09-08 14:03] LABS: UPRO/UCREAT Ratio 0.09 mg/mg CR
[2023-09-08 14:06] LABS: Parathyroid Hormone 64.9 pg/mL (15-65)
[2023-09-08 15:50] LABS: 25 Hydroxy Vitamin D 77 ng/mL (30-100)
== END 2023-09-08 13:10 | disposition home or self-care (01) ==
LOC: LAB 13:18
PROVIDERS: PCP Nurse Practitioner Family; Visit Provider Internal Medicine Nephrology
DX: Z79.899 Other long term (current) drug therapy (principal); N18.2 Chronic kidney disease, stage 2 (mild)
CPT/HCPCS: 36415; 80069; 82306; 82310; 82570; 83970; 84156; 85025

== ENCOUNTER 2023-10-01 10:14 | Outpatient (CLI) | payer MEDICARE, OTHER, SELFPAY ==
--- NOTE | 2023-10-01 10:23 | XR_ITS ---
WS: [id number] Examination: XR ankle LT min 3V* [id number] Reason for Exam: M79.673 - Pain in unspecified foot Date: October 01, 2023 Comparison: None. Findings: Bone density is maintained without destruction. The ankle mortise is intact. There is no fracture or dislocation. Calcaneal spurring is identified. Chronic corticated bone densities are identified adjacent to both the medial and lateral malleolar I. XR/XR ankle LT min 3V* [id number] Impression: No acute bony abnormality is appreciated.
--- NOTE | 2023-10-01 10:23 | XR_ITS ---
WS: [id number] Examination: XR ankle RT min 3V* [id number] Reason for Exam: M79.673 - Pain in unspecified foot Date: October 01, 2023 Comparison: None. Findings: Posttraumatic and surgical changes to the right ankle are noted. There is plate and screw fixation of the fibula and screw fixation of the posterior tibia. Interosseous fusion is identified. There is marked deformity of the talotibial joint with narrowing laterally. There is sclerosis and so me cyst formation. Calcaneal spurring is present. 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
== END 2023-10-01 10:15 | disposition home or self-care (01) ==
LOC: RAD 10:17
PROVIDERS: PCP Nurse Practitioner Family; Visit Provider Nurse Practitioner Family
DX: M85.872 Other specified disorders of bone density and structure, left ankle and foot (principal); M77.31 Calcaneal spur, right foot; M21.961 Unspecified acquired deformity of right lower leg; M25.871 Other specified joint disorders, right ankle and foot; Z96.698 Presence of other orthopedic joint implants; M77.32 Calcaneal spur, left foot
CPT/HCPCS: 73610

== ENCOUNTER → 2023-10-13 09:10 | Outpatient (BNVA) | payer MEDICARE, OTHER, SELFPAY | PROVIDERS: PCP Nurse Practitioner Family; Visit Provider Podiatrist Foot & Ankle Surgery | DX: M79.671 Pain in right foot (principal); M79.672 Pain in left foot; M20.41 Other hammer toe(s) (acquired), right foot; M20.42 Other hammer toe(s) (acquired), left foot; M21.611 Bunion of right foot; M21.612 Bunion of left foot; M19.171 Post-traumatic osteoarthritis, right ankle and foot; M19.172 Post-traumatic osteoarthritis, left ankle and foot; M21.371 Foot drop, right foot; M21.372 Foot drop, left foot; R26.81 Unsteadiness on feet; Z91.81 History of falling | CPT/HCPCS: 73630; 99203 ==

== ENCOUNTER → 2023-11-03 12:49 | Outpatient (BNVA) | payer MEDICARE, OTHER, SELFPAY | PROVIDERS: PCP Nurse Practitioner Family; Visit Provider Nurse Practitioner Family | DX: L57.0 Actinic keratosis (principal); L82.1 Other seborrheic keratosis; L81.4 Other melanin hyperpigmentation; D22.4 Melanocytic nevi of scalp and neck; Z85.828 Personal history of other malignant neoplasm of skin | CPT/HCPCS: 17000; 99213 ==

== ENCOUNTER → 2024-01-12 10:32 | Outpatient (BNVA) | payer MEDICARE, OTHER, SELFPAY | PROVIDERS: PCP Nurse Practitioner Family; Visit Provider Nurse Practitioner Family | DX: Z79.899 Other long term (current) drug therapy (principal); E78.5 Hyperlipidemia, unspecified; I10 Essential (primary) hypertension; M50.30 Other cervical disc degeneration, unspecified cervical region | CPT/HCPCS: 80053; 80061; 82306; 85025 ==

== ENCOUNTER 2024-03-10 09:24 | Outpatient (CLI) | payer MEDICARE, OTHER, SELFPAY ==
[2024-03-10 10:11] LABS: Basophils # 0.1 10^3/uL (0.0-0.1); Eosinophils # 0.4 10^3/uL (0.0-0.8); Eosinophils % 5.3 %; Hematocrit 43.7 % (36-47); Lymphocytes # 2.4 10^3/uL (0.8-4.8); Lymphocytes % 34.8 %; Mean Corpuscular HGB Conc 32.5 g/dL (30-55); Mean Corpuscular Hemoglobin 31.8 pg (27-33); Mean Corpuscular Volume 97.8 fl (85-98); Mean Platelet Volume 9.6 fL (7.4-10.4); Monocytes # 0.6 10^3/uL (0.2-0.9); Monocytes % 9.4 %; Neutrophils # 3.36 10^3/uL (1.8-7.7); Neutrophils % 49.4 %; Nucleated Red Blood Cells % 0 %; Platelet Count 240 10^3/cmm (157-399); Red Blood Count 4.47 10^6/uL (3.85-5.65); Red Cell Distribution Width 12.3 % (12.1-15.1); White Blood Count 6.81 10^3/uL (3.29-11.43)
[2024-03-10 10:21] LABS: Albumin Level 4.6 g/dL (3.5-5.2); Anion Gap 15.5 (5-19); Blood Urea Nitrogen 22 mg/dL (8-23); Calcium 10.6 mg/dL (8.5-10.5); Carbon Dioxide 27 mmol/L (22-29); Chloride 101 mmol/L (98-107); Glomerular Filtration Rate 49.1 mL/min (90-130); Glucose 83 mg/dL (65-115); Potassium 3.5 mmol/L (3.5-5.1); Sodium 140 mmol/L (136-145)
[2024-03-10 10:25] LABS: Calcium 10.6 mg/dL (8.5-10.5)
[2024-03-10 10:33] LABS: Parathyroid Hormone 59.3 pg/mL (15-65)
[2024-03-10 10:38] LABS: 25 Hydroxy Vitamin D 52 ng/mL (30-100)
[2024-03-10 10:54] LABS: Creatinine Urine, Random 204 mg/dL (28-217); Microalbum Creatinine Ratio Ur 29 mg/dL (0-20); Microalbumin Random Urine 6 ug/dL (0-20)
== END 2024-03-10 09:25 | disposition home or self-care (01) ==
LOC: LAB 09:26
PROVIDERS: PCP Nurse Practitioner Family; Visit Provider Registered Nurse
DX: N18.31 Chronic kidney disease, stage 3a (principal)
CPT/HCPCS: 36415; 80069; 82044; 82306; 82310; 83970; 85025

== ENCOUNTER → 2024-03-24 11:56 | Outpatient (BNVA) | payer MEDICARE, OTHER, SELFPAY | PROVIDERS: PCP Nurse Practitioner Family; Visit Provider Registered Nurse | DX: N18.30 Chronic kidney disease, stage 3 unspecified (principal) | CPT/HCPCS: 80069; 82310; 82570; 83970; 84156; 85025 ==

== ENCOUNTER → 2024-05-06 09:45 | Outpatient (BNVA) | payer MEDICARE, OTHER, SELFPAY | PROVIDERS: PCP Nurse Practitioner Family; Visit Provider Specialist | DX: R41.3 Other amnesia (principal); G43.711 Chronic migraine without aura, intractable, with status migrainosus; G43.909 Migraine, unspecified, not intractable, without status migrainosus; G30.9 Alzheimer's disease, unspecified; F02.80 Dementia in other diseases classified elsewhere, unspecified severity, without behavioral disturbance, psychotic disturbance, mood disturbance, and anxiety; G37.9 Demyelinating disease of central nervous system, unspecified | CPT/HCPCS: 99214 ==

== ENCOUNTER → 2024-07-01 13:43 | Outpatient (BNVA) | payer MEDICARE, OTHER, SELFPAY | PROVIDERS: PCP Nurse Practitioner Family; Visit Provider Specialist | DX: R41.3 Other amnesia (principal); G43.711 Chronic migraine without aura, intractable, with status migrainosus; G30.9 Alzheimer's disease, unspecified; F02.80 Dementia in other diseases classified elsewhere, unspecified severity, without behavioral disturbance, psychotic disturbance, mood disturbance, and anxiety; G37.9 Demyelinating disease of central nervous system, unspecified | CPT/HCPCS: 99213 ==

== ENCOUNTER → 2024-07-02 10:31 | Outpatient (BNVA) | payer MEDICARE, OTHER, SELFPAY | PROVIDERS: PCP Nurse Practitioner Family; Visit Provider Nurse Practitioner Family | DX: I10 Essential (primary) hypertension (principal) | CPT/HCPCS: 80053; 80061 ==

== ENCOUNTER → 2024-07-26 08:56 | Outpatient (BNVA) | payer MEDICARE, OTHER, SELFPAY | PROVIDERS: PCP Nurse Practitioner Family; Visit Provider Anesthesiology Pain Medicine | DX: M17.11 Unilateral primary osteoarthritis, right knee (principal); M17.12 Unilateral primary osteoarthritis, left knee; M25.561 Pain in right knee; G89.29 Other chronic pain; M25.512 Pain in left shoulder; M50.30 Other cervical disc degeneration, unspecified cervical region; M79.671 Pain in right foot; M79.672 Pain in left foot | CPT/HCPCS: 99204 ==

== ENCOUNTER 2024-07-28 08:59 | Outpatient (CLI) | payer MEDICARE, OTHER, SELFPAY ==
--- NOTE | 2024-07-28 09:03 | XR_ITS ---
WS: [id number] Left knee, 3 views, 07/28/2024 Clinical Data: M17.12 - Unilateral primary osteoarthritis, left knee Comparison: None. Findings: No fractures or dislocations are seen. There is medial and lateral joint compartment narrowing with spurring of the medial femoral condyle and lateral tibial plateau. The posterior left patella shows mild irregularity. The soft tissues are normal. XR/XR knee LT 3V* [id number] Impression: Moderate osteoarthritis of the left knee.
--- NOTE | 2024-07-28 09:03 | XR_ITS ---
WS: [id number] Right knee, 3 views, 07/28/2024 Clinical Data: M17.11 - Unilateral primary osteoarthritis, right knee Comparison: None. Findings: No fractures or dislocations are seen. There is medial and lateral joint space narrowing. There are spurs of the medial and lateral femoral condyle and lateral tibial plateau. There is mild irregularity of the posterior patella.. The soft tissues are unremarkable. XR/XR knee RT 3V* [id number] Impression: Moderate osteoarthritis of the right knee.
== END 2024-07-28 09:00 | disposition home or self-care (01) ==
PROVIDERS: PCP Nurse Practitioner Family; Visit Provider Anesthesiology Pain Medicine
DX: M17.11 Unilateral primary osteoarthritis, right knee (principal); M17.12 Unilateral primary osteoarthritis, left knee
CPT/HCPCS: 73562

== ENCOUNTER → 2024-08-03 14:17 | Outpatient (BNVA) | payer MEDICARE, OTHER, SELFPAY | PROVIDERS: PCP Nurse Practitioner Family; Visit Provider Anesthesiology Pain Medicine | DX: M17.0 Bilateral primary osteoarthritis of knee (principal); M25.561 Pain in right knee; G89.29 Other chronic pain; M25.512 Pain in left shoulder; M50.30 Other cervical disc degeneration, unspecified cervical region; M79.671 Pain in right foot; M79.672 Pain in left foot | CPT/HCPCS: 20610; 99214; J1010; J3490 ==

== ENCOUNTER 2024-09-08 10:28 | Outpatient (CLI) | payer MEDICARE, OTHER, SELFPAY ==
[2024-09-08 11:58] LABS: Hematocrit 40.6 % (36-47); Hemoglobin 12.90 g/dL (11.27-16.99); Mean Corpuscular HGB Conc 31.8 g/dL (30-55); Mean Corpuscular Hemoglobin 31.5 pg (27-33); Mean Corpuscular Volume 99.3 fl (85-98); Nucleated Red Blood Cells % 0 %; Platelet Count 198 10^3/cmm (157-399); Red Blood Count 4.09 10^6/uL (3.85-5.65); White Blood Count 6.36 10^3/uL (3.29-11.43)
[2024-09-08 12:21] LABS: Albumin Level 4.3 g/dL (3.5-5.2); Anion Gap 13.2 (5-19); Blood Urea Nitrogen 18 mg/dL (8-23); Calcium 9.8 mg/dL (8.5-10.5); Calcium 9.9 mg/dL (8.5-10.5); Carbon Dioxide 25 mmol/L (22-29); Chloride 102 mmol/L (98-107); Glucose 87 mg/dL (65-115); Potassium 4.2 mmol/L (3.5-5.1); Sodium 136 mmol/L (136-145)
[2024-09-08 12:26] LABS: Creatinine Urine, Random 218 mg/dL (28-217); Microalbum Creatinine Ratio Ur 9 mg/dL (0-20)
== END 2024-09-08 10:29 | disposition home or self-care (01) ==
LOC: LAB 10:39
PROVIDERS: PCP Nurse Practitioner Family; Visit Provider Registered Nurse
DX: N18.31 Chronic kidney disease, stage 3a (principal)
CPT/HCPCS: 36415; 80069; 82044; 82310; 83970; 85025

== ENCOUNTER → 2024-10-04 13:51 | Outpatient (BNVA) | payer MEDICARE, OTHER, SELFPAY | PROVIDERS: PCP Nurse Practitioner Family; Visit Provider Anesthesiology Pain Medicine | DX: M25.561 Pain in right knee (principal); G89.29 Other chronic pain; M25.512 Pain in left shoulder; M50.30 Other cervical disc degeneration, unspecified cervical region; M79.671 Pain in right foot; M79.672 Pain in left foot | CPT/HCPCS: 99214 ==

== ENCOUNTER 2024-11-15 08:57 | Outpatient (CLI) | payer MEDICARE, OTHER, SELFPAY ==
--- NOTE | 2024-11-15 09:15 | US_ITS ---
WS: [id number] RIGHT UPPER QUADRANT ULTRASOUND HISTORY: R10.811 - Right upper quadrant abdominal tenderness COMPARISON: None available. Liver: 14.6 cm in length. Normal size liver and echogenicity. No bile duct dilatation or mass. Portal Vein: Normal hepatopetal flow with monophasic waveform. Gallbladder: Normally distended with stones. There is a stone at the gallbladder neck which does not move with patient positioning. CBD: 0.4 cm Pancreas: Not visualized. May be atrophic. Right kidney: 9.7 cm in length. Normal size kidney with cortical thinning. No hydronephrosis. Aorta and IVC: Limited. No ascites. US/US gall bladder [id number] IMPRESSION: 1. Cholelithiasis without evidence for acute cholecystitis. Gallstone present in the gallbladder neck and may be entrapped as it does not change with patient position. Consider surgical evaluation. 2. No common bile duct dilatation. 3. Mild cortical thinning RIGHT kidney.
== END 2024-11-15 08:58 | disposition home or self-care (01) ==
LOC: RAD 09:00
PROVIDERS: PCP Nurse Practitioner Family; Visit Provider Nurse Practitioner Family
DX: R10.811 Right upper quadrant abdominal tenderness (principal)
CPT/HCPCS: 76705

== ENCOUNTER → 2024-11-22 12:56 | Outpatient (BNVA) | payer MEDICARE, OTHER, SELFPAY | PROVIDERS: PCP Nurse Practitioner Family; Visit Provider Anesthesiology Pain Medicine | DX: M17.0 Bilateral primary osteoarthritis of knee (principal); G89.29 Other chronic pain; M25.512 Pain in left shoulder; M50.30 Other cervical disc degeneration, unspecified cervical region; M79.671 Pain in right foot; M79.672 Pain in left foot | CPT/HCPCS: 20610; 99214; J1010; J3490 ==

== ENCOUNTER → 2024-11-26 10:14 | Outpatient (BNVA) | payer MEDICARE, OTHER, SELFPAY | PROVIDERS: PCP Nurse Practitioner Family; Visit Provider Student in an Organized Health Care Education/Training Program | DX: K82.9 Disease of gallbladder, unspecified (principal); R03.0 Elevated blood-pressure reading, without diagnosis of hypertension | CPT/HCPCS: 99204 ==